=== PATIENT | male | born 1940 | race Caucasian/White ===

== ENCOUNTER 2016-04-16 12:36 | Emergency (ER) | payer MEDICARE ==
[~2016-04-16] VITALS: Ht 172.7 cm; Wt 73.9 kg
[~2016-04-16 12:36] MED LIST: AMOX-355 PO
--- OUTSIDE RECORDS SUMMARY | 2016-04-16 12:41 | XMS REPORT | Continuity of Care Document ---
Author Author [facility] Organization [facility] Address Unknown Phone Unavailable Care Team Providers Care Enchilada Maker Name Role Phone MORRIS VAIL MD PCP Insurance Providers Payer Name Policy Number Subscriber Name Relationship Unknown Advance Directives Directive Response Recorded Date/Time Advance Directives Yes 04/08/16 8:05pm Health Care Power of Final Installer Inspector No 04/08/16 8:05pm Organ Donor Yes 04/08/16 8:05pm Resuscitation Status Full Code 04/08/16 8:05pm Chief Complaint and Reason for Visit Chief Complaint Laceration Reason for Visit Laceration of hand Problems Active Problems Medical Problem Onset Date Status Laceration of hand Unknown Acute Medications Current Home Medications Medication Dose Units Route Directions Days/Qty Instructions Start Date Amoxicillin/Potassium Clav 1 Each 1 Each Oral Twice A Day 10 04/08/16 Social History Social History Problem Response Recorded Date/Time Alcohol Use Occasionally Uses 04/08/2016 8:05pm Recreational Drug Use No 04/08/2016 8:05pm Recent Foreign Travel No 04/08/2016 8:05pm Recent Infectious Disease Exposure No 04/08/2016 8:05pm Hospitalization with Isolation Denies 04/08/2016 8:05pm Sexually Transmitted Disease No 04/08/2016 8:05pm Smoking Status Never a Smoker 04/08/2016 8:05pm Recent Hopitalizations No 04/08/2016 8:05pm Sexually Transmitted Disease No 04/08/2016 8:05pm Hospitalization with Isolation Denies 04/08/2016 8:05pm Hx Sexually Transmitted Disorders No 07/16/2008 10:17am Query Response Start Date Stop Date Smoking Status Never a Smoker Hospital Discharge Instructions No hospital discharge instructions. Plan of Care Discharge Date 04/08/16 8:39pm Disposition 01 HOME, SELF-CARE Condition at Discharge Stable Instructions/Education Provided Laceration Repair With Stitches (DC) Prescriptions See Medication Section Referrals MORRIS VAIL MD - Primary Care Physician Additional Instructions/Education 1. Tylenol and Motrin as needed for pain 2. Antibiotics as directed 3. Return to ER for any sign of infection such as redness, pus like drainage from the wound or fevers 3. Keep this dressing on tonight and keep the hand elevated. Starting tomorrow you may take this dressing off and put a simple Band-Aid over it. However, do not soak the hand in water such as doing dishes, bathtub, swimming pool until stitches have been removed. Starting tomorrow however you may rinse this gently with water such as in a sink or in the shower. 4. Return to the emergency room in 7-10 days at your convenience to have the stitches removed at no charge. All discharge instructions reviewed with patient and/or family. Voiced understanding. Functional Status No functional status results. Allergies, Adverse Reactions, Alerts No known allergies. Immunizations Name Given Type DTaP-Tetanus, Dipth, Pertuss P/F (Boostrix) 04/08/16 Administered Vital Signs Acute Vital Signs Vital Response Date/Time Temperature (Fahrenheit) 97.4 degrees F (97.6 - 99.5) 04/08/2016 8:05pm Temperature (Calculated Celsius) 36.07857 degrees C (36.4 - 37.5) 04/08/2016 8:05pm Temperature Source Temporal 04/08/2016 8:05pm Pulse Rate (adult) 64 bpm (60 - 90) 04/08/2016 8:05pm Respiratory Rate 18 bpm (12 - 24) 04/08/2016 8:05pm O2 Sat by Pulse Oximetry 99 % (88 - 100) 04/08/2016 8:05pm Blood Pressure 168/86 mm Hg 04/08/2016 8:05pm Blood Pressure Mean 113 mm Hg 04/08/2016 8:05pm Pain Numeric Pain Scale 4 04/08/2016 8:05pm Height (Feet) 5 feet 04/08/2016 8:05pm Height (Inches) 8 inches 04/08/2016 8:05pm Height (Calculated Centimeters) 172.716190 cm 04/08/2016 8:05pm Weight (Pounds) 163 pounds 04/08/2016 8:05pm Weight (Calculated Kilograms) 73.831801 kilograms 04/08/2016 8:05pm Capillary Refill Capillary Refill Less Than 3 Seconds 04/08/2016 8:05pm Height 5 ft 8 in Weight 163 lb Body Mass Index 24.8 kg/m^2 Results No known relevant diagnostic tests, laboratory data and/or discharge summary. Procedures No known history of procedures. Encounters Encounter Location Arrival/Admit Date Discharge/Depart Date Attending Provider Departed Emergency Room [facility] 04/08/16 7:29pm 04/08 8:39pm NEREYDA FORTUNE APRN Recent Diagnosis
[2016-04-16 12:55] VITALS: BP 165/89
== END 2016-04-16 12:55 | disposition home or self-care (01) ==
LOC: EDUNIT# 12:36 → ER 12:37
DX: S61.412D Laceration without foreign body of left hand, subsequent encounter (principal)

== ENCOUNTER 2016-12-07 05:30 | Outpatient (CLI) | payer MEDICARE ==
[~2016-12-07] VITALS: Ht 172.7 cm; Wt 73.9 kg
[2016-12-07] MEDS ORDERED: ENAL10TA PO (10:22)
== END 2016-12-07 10:25 ==
LOC: PREOP 05:30
PROVIDERS: ATTEND Surgery
DX: Z01.818 Encounter for other preprocedural examination (principal); Z12.11 Encounter for screening for malignant neoplasm of colon

== ENCOUNTER 2016-12-12 08:22 | Day surgery (SDC) | payer MEDICARE ==
[~2016-12-12] VITALS: Ht 172.7 cm; Wt 73.9 kg
[~2016-12-12 08:22] MED LIST changes: +ENAL10TA PO
[2016-12-12] MEDS ORDERED: LACTATED RINGERS 1,000 ML IV STA (08:32)
--- NOTE | 2016-12-12 08:50 | Progress Note-Pre Operative ---
Pre-Operative Progress Note H&P Reviewed The H&P was reviewed, patient examined and no changes noted. Date Seen by Provider: Dec 12, 2016 Time Seen by Provider: 08:50 Date H&P Reviewed: Dec 12, 2016 Time H&P Reviewed: 08:50 Pre-Operative Diagnosis: screening colonoscopy, history of colon polyp RAMON CABALLERO DO Dec 12, 2016 8:50 am
[2016-12-12] MEDS ORDERED: proPOfol 200 MG/20 ML (DIPRIVAN) VIAL IV ONE (08:53)
[2016-12-12] MEDS ORDERED: MIDAZOLAM 2 MG/2 ML (VERSED) VIAL ONE (08:53)
[2016-12-12 09:02] VITALS: BP 130/63
--- NOTE | 2016-12-12 09:44 | Progress Note-Post Operative ---
Post-Operative Progess Note Surgeon (s)/Wood Milling Machine Operator (s) Surgeon RAMON CABALLERO DO Wood Milling Machine Operator: n/a Pre-Operative Diagnosis screening colonoscopy, history of colon polyp Post-Operative Diagnosis Minimal diverticulosis Procedure & Operative Findings Date of Procedure 12/12/16 Procedure Performed/Findings Screening colonoscopy. No significant findings Anesthesia Type per MDA Estimated Blood Loss Estimated blood loss (mL): none Specimens/Packing Specimens Removed none RAMON CABALLERO DO Dec 12, 2016 9:44 am
--- NOTE | 2016-12-12 09:56 | Discharge Inst-Simple/Standard ---
Discharge Inst-Standard Patient Instructions/Follow Up Plan of Care/Instructions/FU: 5 years repeat colonoscopy unless any problems then be re-evaluated. Activity as Tolerated: Yes Discharge Diet: Regular Diet RAMON CABALLERO DO Dec 12, 2016 09:56
[2016-12-12 10:00] VITALS: BP 133/79
[2016-12-12 10:30] VITALS: BP 127/63
--- NOTE | 2016-12-12 10:42 | OPERATIVE REPORT ---
DATE OF SERVICE: 12/12/2016 PREOPERATIVE DIAGNOSIS: Screening colonoscopy, history of colon polyp. POSTOPERATIVE DIAGNOSIS: Minimal diverticulosis. PROCEDURE: Screening colonoscopy. SURGEON: Dr. Ramon Barnes. ANESTHESIA: Per MDA. ESTIMATED BLOOD LOSS: None. INDICATIONS: The patient is a 76-year-old male with history of colon polyps and is due for screening colonoscopy. He understands risks and benefits of procedure and wished to proceed with procedure. Consent was signed and in the chart. PROCEDURE: The patient was taken to the endoscopy suite, placed in left lateral recumbent position. Timeout was performed. Digital rectal exam was performed and there were no palpable polyps, masses or ulcerations. Scope was inserted in the rectum and advanced all the way to the cecum with minimal difficulty. The prep was adequate. There were no polyps, masses or ulcerations within the cecum, ascending, transverse, descending and sigmoid colon. Within the sigmoid colon there is a minimal amount of diverticulosis present. Scope was continued slowly retracted back into the rectum where it was attempted to be retroflexed but it was tightened was unable to be retroflexed; therefore, multiple insertions and retractions were made noting no other pathology. Scope was then slowly retracted until completely removed, noting no other pathology. The patient tolerated procedure well without any complications and was taken to recovery room in stable condition. RECOMMENDATIONS: The patient will need repeat colonoscopy in 5 years due to history of colon polyps. If he has any problems prior to that, he should be reevaluated at that time. Job ID: [id number] DocumentID: [id number] Dictated Date: 12/12/2016 09:51:52 Oil Producer Date: 12/12/2016 10:41:56 Dictated By: RAMON BARNES DO
== END 2016-12-12 10:40 | disposition home or self-care (01) ==
LOC: ENDO 08:22
PROVIDERS: ATTEND Surgery
DX: Z12.11 Encounter for screening for malignant neoplasm of colon (principal); K57.30 Diverticulosis of large intestine without perforation or abscess without bleeding; Z86.010 Personal history of colon polyps; I10 Essential (primary) hypertension; Z87.891 Personal history of nicotine dependence; Z79.82 Long term (current) use of aspirin; Z79.899 Other long term (current) drug therapy
CPT/HCPCS: G0105

== ENCOUNTER → 2017-12-26 | Outpatient (CLI) | payer MEDICARE ==
--- NOTE | 2017-12-26 14:15 | Diagnostic Imaging Report ---
INDICATION: Acute midline low back pain. Left-sided sciatica. TECHNIQUE: AP, lateral, and spot imaging of the lumbar spine. CORRELATION STUDY: None. FINDINGS: Trace anterolisthesis of L4 on L5 may be degenerative in nature. Lumbar vertebral body heights are maintained. Mild endplate lipping particularly at the L3 level. Mild diffuse areas of disc space narrowing. Mild hypertrophic facet arthropathy at the L5-S1 and L4-L5 levels. Scattered areas of vascular calcification. Surgical clips in the right mid abdomen. IMPRESSION: No radiographic evidence for acute bony abnormality of the lumbar spine. Mild degenerative changes suggested. Dictated by: Dictated on workstation # [id number]
--- NOTE | 2017-12-26 14:16 | Diagnostic Imaging Report ---
INDICATION: Left ankle pain. Overuse injury of left ankle with pain for approximately 8 weeks. TECHNIQUE: Three views of the left ankle. CORRELATION STUDY: None. FINDINGS: Alignment is anatomic with the ankle mortise maintained. Talar dome preserved. There are a few tiny bone densities adjacent to the medial malleolus and distal tip of the fibula. This may be reflective of prior avulsion type injury. Acute avulsion injury is considered less likely. Otherwise, negative for acute bony abnormality. Soft tissues appear unremarkable. There is however rather prominent severity vascular calcification. Tiny plantar calcaneal spur. IMPRESSION: No suggestion of acute bony abnormality about the left ankle. Tiny bone densities adjacent to the medial malleolus and distal tip of the fibula may be reflective of degenerative type change or perhaps prior avulsion type injury. Acute abnormality considered less likely. Dictated by: Dictated on workstation # [id number]
== END ==
LOC: RAD 11:59
PROVIDERS: ATTEND Nurse Practitioner Family
DX: S99.812A Other specified injuries of left ankle, initial encounter (principal); M54.42 Lumbago with sciatica, left side
CPT/HCPCS: 72100; 73610

== ENCOUNTER → 2018-05-22 | Outpatient (CLI) | payer MEDICARE ==
--- NOTE | 2018-05-22 19:03 | Diagnostic Imaging Report ---
INDICATION: Posterior hip pain. EXAMINATION: AP hip and frogleg view of the left lower extremity. FINDINGS: There is no fracture, dislocation or acute bony abnormality evident. There is moderate degenerative disease involving the hip joint. The soft tissues are unremarkable for an acute abnormality. There are extensive vascular calcifications evident. IMPRESSION: There is no evidence for an acute bony abnormality. Dictated by: Dictated on workstation # [id number]
== END ==
LOC: RAD 16:00
PROVIDERS: ATTEND Neurological Surgery
DX: M25.552 Pain in left hip (principal)
CPT/HCPCS: 73502

== ENCOUNTER → 2018-08-22 | Outpatient (CLI) | payer MEDICARE ==
--- NOTE | 2018-08-22 11:42 | Diagnostic Imaging Report ---
INDICATION: Followup lumbar spine surgery. COMPARISON: 12/26/2017 FINDINGS: Frontal and lateral radiographic views of the lumbar spine were obtained. Patient is status post previous L4-5 laminectomy with posterior fusion. Bilateral interpedicular screws and posterior fusion rods are identified and appear to be in appropriate position and are intact. Intervertebral disc spacer material is also noted at L4-5 and appears to be appropriately positioned. No unexpected radiopaque foreign bodies are seen. Static alignment is maintained. Vertebral body heights are preserved. There is no evidence of acute fracture. Surrounding soft tissue structures are unremarkable. IMPRESSION: 1. Postsurgical changes at L4-5 as above. No evidence of hardware fracture or failure. 2. No acute fracture or dislocation of the lumbar spine. Dictated by: Dictated on workstation # [id number]
== END ==
LOC: RAD 10:56
PROVIDERS: ATTEND Neurological Surgery
DX: Z48.89 Encounter for other specified surgical aftercare (principal); Z98.1 Arthrodesis status
CPT/HCPCS: 72100

== ENCOUNTER → 2018-10-03 | Outpatient (CLI) | payer MEDICARE ==
--- NOTE | 2018-10-03 11:41 | Diagnostic Imaging Report ---
INDICATION: Low back pain. Lumbar spine. FINDINGS: Lateral flexion and extension views of the lumbar spine show postop changes from discectomy and dorsal fusion at L4-5. The hardware appears to be intact. Alignment is good. There are no fractures. The other disc spaces are unremarkable. There is no change in alignment between flexion and extension positioning. IMPRESSION: Postop changes from discectomy with dorsal fusion at L4-5. Patient has had laminectomies at L4-5. No acute abnormality seen. No change compared to 08/22/2018. Dictated by: Dictated on workstation # [id number]
== END ==
LOC: RAD 10:29
PROVIDERS: ATTEND Neurological Surgery
DX: Z48.89 Encounter for other specified surgical aftercare (principal); M54.5 Low back pain; Z98.890 Other specified postprocedural states; Z98.1 Arthrodesis status
CPT/HCPCS: 72100

== ENCOUNTER → 2019-04-22 | Outpatient (CLI) | payer MEDICARE, OTHER ==
--- NOTE | 2019-04-22 16:29 | Diagnostic Imaging Report ---
INDICATION: 79-year-old male with history of vertebral fracture and osteoarthritis. COMPARISON: None. FINDINGS: AP Spine L1-L4: [BMD (g/cm2): NA] [T-Score: NA] [Z-Score: NA] [BMD Previous: NA] [BMD % Change: NA] LT Hip Neck: [BMD (g/cm2): 0.942] [T-Score: -1.0] [Z-Score: 0.5] LT Hip Total: [BMD (g/cm2):1.074] [T-Score:-0.2] [Z-Score: 0.8] [BMD Previous: NA] [BMD % Change: NA] RT Hip Neck: [BMD (g/cm2):0.960] [T-Score:-0.8] [Z-Score:0.7] RT Hip Total: [BMD (g/cm2):1.056] [T-score:-0.3] [Z-Score:0.7] [BMD Previous:NA] [BMD % Change:NA] *Indicates significant change from prior examination based on 95% confidence level. World Health Organization criteria for BMD interpretation classify patients as Normal (T-score at or above -1.0), Osteopenic (T-score between -1.0 and -2.5) or Osteoporotic (T-score at or below -2.5). LIMITATIONS AND MODIFICATION: The patient has a history of lumbar fusion. FRACTURE RISK (FRAX SCORE): Not applicable. IMPRESSION: 1. Normal bone mineral density. 2. Baseline examination. 3. See below National Osteoporosis Foundation guidelines on when to potentially initiate pharmacologic therapy. Based on the National Osteoporosis Foundation Guidelines, pharmacologic treatment should be initiated in any of the following, unless clinical conditions suggest otherwise: * Any patient with prior fragility fracture of the hip or vertebrae. A spine fracture indicates 5X risk for subsequent spine fracture and 2X risk for subsequent hip fracture. * Osteoporosis (T-score <-2.5). * Postmenopausal women and men age 50 and older with low bone mass/osteopenia (T-score between -1.0 and -2.5) by DXA and 10-year major osteoporotic fracture greater than 20% or a 10-year probability of hip fracture greater than 3%. These fracture risks are supplied above in the FRAX score, if applicable. * Clinician judgment and/or patient preferences may indicate treatment for people with 10-year fracture probabilities above or below these levels. Dictated by: Dictated on workstation # [id number]
== END ==
LOC: RAD 14:30
PROVIDERS: ATTEND Family Medicine
DX: M85.89 Other specified disorders of bone density and structure, multiple sites (principal); M19.90 Unspecified osteoarthritis, unspecified site; Z87.81 Personal history of (healed) traumatic fracture
CPT/HCPCS: 77080

== ENCOUNTER → 2021-08-30 | Outpatient (CLI) | payer MEDICARE ==
[~2021-08-30] MED LIST changes: -ENAL10TA PO; +ENAL10TA16 PO
--- NOTE | 2021-08-30 14:43 | Diagnostic Imaging Report ---
PROCEDURE: US Renal Bilateral. TECHNIQUE: Multiple real-time grayscale images were obtained over the kidneys in various projections bilaterally. INDICATION: BPH. Right kidney measures 10.5 x 4.8 x 4.6 cm and the left kidney measures 10.0 x 5.1 x 4.7 cm. The cortical thickness and echogenicity is normal. No calculi are seen. There is no hydronephrosis. IMPRESSION: Unremarkable renal ultrasound. Dictated by: Dictated on workstation # [id number]
== END ==
LOC: RAD 12:34
PROVIDERS: ATTEND Urology
DX: N40.1 Benign prostatic hyperplasia with lower urinary tract symptoms (principal)
CPT/HCPCS: 76770